=== PATIENT | female | born 1955 | race Caucasian/White ===

== ENCOUNTER → 2016-04-26 | Outpatient (CLI) | payer OTHER ==
--- NOTE | 2016-04-26 16:18 | P.HPBAR ---
Bariatric H&P - History & Physicial H&P Date: 04/26/16 History & Physicial: Visit/CC: Patient initial contact: Initial weight: 98.43 kg Initial weight in pounds: Height: Initial BMI: Last weight: Current weight: Current weight in pounds: Current BMI: [place] body weight (based on NIH guidelines): Excess body weight loss: The patient is a 60 year-old F who presents for Bariatric Assessment. The patient presents today for sleeve gastric follow-up.. Her gastric sleeve was performed in December 2013. She's had minimal complaints of GERD and arthritis. Past Medical History Past Medical History: GERD/Reflux, Hyperlipidemia, Hypertension, Syncope Additional Past Medical History / Comment(s): SUSPECTED STROKE, TESTED NEGATIVE BUT TAKES PLAVIX SINCE 2012 History of Any Multi-Drug Resistant Organisms: None Reported Past Surgical History: Bariatric Surgery, Section, Tubal Ligation Additional Past Surgical History / Comment(s): BILATERAL EYE SURGERY TO CORRECT BLEEDING BEHIND THE EYES, SLEEVE IN DECEMBER 2013 Past Anesthesia/Blood Transfusion Reactions: No Reported Reaction Past Psychological History: No Psychological Hx Reported Smoking Status: Former smoker Past Alcohol Use History: None Reported Past Drug Use History: None Reported - Past Family History Father Family Medical History: Hyperlipidemia, Hypertension Additional Family Medical History / Comment(s): MACULAR DEGENERATION Mother Family Medical History: Hyperlipidemia, Hypertension Additional Family Medical History / Comment(s): MACULAR DEGENERATION Surgical - Exam - General well developed, no distress - Eyes PERRL - ENT normal pinna - Neck no masses - Respiratory normal expansion - Cardiovascular Rhythm: regular - Abdomen Abdomen: soft, non tender - Rectum Rectum: normal sphincter tone Bariatric Assessment & Plan Plan: Status post sleeve gastrectomy. Patient is doing quite well. Her GERD and arthritis symptoms will be observed. She'll follow-up in 3 months. Bariatric Checklist Checklist: Plan: Checklist: EGD: 1. Hiatal hernia: 2. H. Pylori: HgbA1c: Vitamin D: Smoking: Former smoker Primary care physician referral: Psychiatry clearance: Cardiology clearance: Sleep study: Diet journal: VTE risk score: VTE risk level: Rehab needs at discharge:
[2016-04-26 16:33] VITALS: BP 139/85; PULSE 50; RESP 16; TEMP 98.3; BMI 25.7
== END | disposition home or self-care (01) ==
LOC: BARWHC3 14:58
PROVIDERS: ATTEND Surgery
DX: Z48.815 Encounter for surgical aftercare following surgery on the digestive system (principal); K21.9 Gastro-esophageal reflux disease without esophagitis; M19.90 Unspecified osteoarthritis, unspecified site; Z98.84 Bariatric surgery status; Z87.891 Personal history of nicotine dependence
CPT/HCPCS: 99211

== ENCOUNTER → 2016-08-02 | Outpatient (CLI) | payer OTHER ==
[2016-08-05 15:55] LABS: LDL Size 21.1 nm (>20.5); LDL Size 2 21.1 nm (>=20.8); LDL-P (LDL Particle Number) 528 nmol/L (<1000); Small LDL (Particle Number) <90 nmol/L (<=527)
== END | disposition home or self-care (01) ==
LOC: LABWHC1 07:19
PROVIDERS: ATTEND Internal Medicine Cardiovascular Disease
DX: R50.9 Fever, unspecified (principal)
CPT/HCPCS: 36415; 83704

== ENCOUNTER → 2017-12-26 | Outpatient (CLI) | payer OTHER ==
[2017-12-26 15:48] VITALS: BP 143/93; PULSE 65; TEMP 98.7; BMI 27.6
--- NOTE | 2017-12-26 16:15 | P.HPBAR ---
Bariatric H&P - History & Physicial H&P Date: 12/26/17 History & Physicial: Visit/CC: annual f/u Patient initial contact: Initial weight: 98.43 kg Initial weight in pounds: 217.00 Height: 5 ft 1 in Initial BMI: 41.0 Last weight: Current weight: 66.497 kg Current weight in pounds: 146.60 Current BMI: 27.6 [place] body weight (based on NIH guidelines): 47.627 kg Excess body weight loss: 62.8% The patient is a 62 year-old F who presents for Bariatric Assessment. Patient presents today for 1 year follow-up from her gastric sleeve. She has complaints of some minimal GERD. She has had excellent weight loss. Past Medical History Past Medical History: GERD/Reflux, Hyperlipidemia, Hypertension, Syncope Additional Past Medical History / Comment(s): SUSPECTED STROKE, TESTED NEGATIVE BUT TAKES PLAVIX SINCE 2012 History of Any Multi-Drug Resistant Organisms: None Reported Past Surgical History: Bariatric Surgery, Section, Tubal Ligation Additional Past Surgical History / Comment(s): BILATERAL EYE SURGERY TO CORRECT BLEEDING BEHIND THE EYES, SLEEVE IN DECEMBER 2013, vertical Past Anesthesia/Blood Transfusion Reactions: No Reported Reaction Past Psychological History: No Psychological Hx Reported Smoking Status: Former smoker Past Alcohol Use History: None Reported Past Drug Use History: None Reported - Past Family History Father Family Medical History: Hyperlipidemia, Hypertension Additional Family Medical History / Comment(s): MACULAR DEGENERATION Mother Family Medical History: Hyperlipidemia, Hypertension Additional Family Medical History / Comment(s): MACULAR DEGENERATION Surgical - Exam Vital Signs Temp Pulse BP 98.7 F 65 143/93 12/26/17 15:35 12/26/17 15:35 12/26/17 15:35 - General well developed, no distress - Eyes PERRL - ENT normal pinna - Neck no masses - Respiratory normal expansion - Cardiovascular Rhythm: regular - Abdomen Well-formed panniculus. Abdomen: soft, non tender Bariatric Assessment & Plan Plan: Status post sleeve gastrectomy. Patient is an excellent weight loss. She has a well-formed panniculus. Patient was given information on panniculectomy. She 'll follow-up in 6 months. Bariatric Checklist Checklist: Plan: Checklist: EGD: 1. Hiatal hernia: 2. H. Pylori: HgbA1c: Vitamin D: Smoking: Former smoker Primary care physician referral: dr buckley Psychiatry clearance: Cardiology clearance: Sleep study: Diet journal: VTE risk score: VTE risk level: Rehab needs at discharge:
== END | disposition home or self-care (01) ==
LOC: BARWHC3 15:18
PROVIDERS: ATTEND Surgery
DX: Z48.815 Encounter for surgical aftercare following surgery on the digestive system (principal); Z87.891 Personal history of nicotine dependence; Z98.84 Bariatric surgery status; Z79.02 Long term (current) use of antithrombotics/antiplatelets
CPT/HCPCS: 99211

== ENCOUNTER → 2018-01-19 | Outpatient (CLI) | payer OTHER ==
[2018-01-24 05:11] LABS: Large VLDL Particle Number,NMR 1.5 nmol/L (<=2.7)
== END ==
LOC: LABWHC1 07:28
PROVIDERS: ATTEND Internal Medicine Cardiovascular Disease
DX: E78.5 Hyperlipidemia, unspecified (principal)
CPT/HCPCS: 36415; 83704

== ENCOUNTER 2018-03-16 07:43 | Emergency (ER) | payer OTHER ==
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
[2018-03-16] MEDS ORDERED: ACETAMINOPHEN IV (For NPO) 1,000 MG in EMPTY BAG 1 BAG IVPB STA (08:01)
[2018-03-16 08:02] LABS: Glucose,Whole Blood 98 mg/dL (75-99)
[2018-03-16 08:13] LABS: Basophils % (A) 0 %; Eosinophils # (A) 0.2 k/uL (0-0.7); Eosinophils % (A) 3 %; HCT 38.6 % (34.0-46.0); HGB 12.6 gm/dL (11.4-16.0); Lymphocytes # (A) 1.3 k/uL (1.0-4.8); Lymphocytes % (A) 15 %; MCHC 32.6 g/dL (31.0-37.0); Mean Platelet Volume 6.8; Monocytes # (A) 0.4 k/uL (0-1.0); Monocytes % (A) 4 %; Neutrophils # (A) 6.8 k/uL (1.3-7.7); Neutrophils % (A) 77 %; Platelet Count 303 k/uL (150-450); RDW 14.4 % (11.5-15.5); WBC 8.8 k/uL (3.8-10.6)
[2018-03-16 08:31] LABS: Albumin 4.2 g/dL (3.5-5.0); Amylase 58 U/L (30-110); Chloride 111 mmol/L (98-107); Glucose 103 mg/dL (74-99); Potassium 3.8 mmol/L (3.5-5.1); Total Protein 7.1 g/dL (6.3-8.2)
[2018-03-16 08:32] LABS: ALT 41 U/L (9-52); AST 43 U/L (14-36); Alcohol <10 mg/dL; Alkaline Phosphatase 93 U/L (38-126); Anion Gap 10 mmol/L; Blood Urea Nitrogen 15 mg/dL (7-17); Calcium 9.6 mg/dL (8.4-10.2); Carbon Dioxide 22 mmol/L (22-30); Sodium 143 mmol/L (137-145); Total Bilirubin 0.8 mg/dL (0.2-1.3)
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
[2018-03-16 08:35] LABS: INR 0.9 (<1.2); Partial Thromboplastin Time 21.5 sec (22.0-30.0); Prothrombin Time 9.8 sec (9.0-12.0)
[2018-03-16 08:40] LABS: Creatine Kinase 205 U/L (30-135)
[2018-03-16 08:53] LABS: Creatine Kinase MB 5.6 ng/mL (0.0-2.4); Troponin I <0.012 ng/mL (0.000-0.034)
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
--- NOTE | 2018-03-16 10:46 | XR ---
EXAMINATION TYPE: XR femur LT DATE OF EXAM: 03/16/2018 COMPARISON: NONE HISTORY: Pain TECHNIQUE: 4 views submitted FINDINGS: Mild diffuse osteopenia. There is mild concentric narrowing of the hip joint. Mild arthropa thy of the knee joint. No erosive changes. There is a bony density adjacent to the greater trochanter . Best seen on the oblique image. This likely is chronic. IMPRESSION: 1. Bony density along the margin of the greater trochanter seen only on the oblique image. Correlate with point tenderness to exclude acute injury to the greater trochanter. Finding may be chronic. Othe rwise, consider CT scan.
== END 2018-03-16 11:25 | disposition home or self-care (01) ==
LOC: EC 07:43
DX: S00.83XA Contusion of other part of head, initial encounter (principal); S80.12XA Contusion of left lower leg, initial encounter; S80.11XA Contusion of right lower leg, initial encounter; S70.12XA Contusion of left thigh, initial encounter; S46.901A Unspecified injury of unspecified muscle, fascia and tendon at shoulder and upper arm level, right arm, initial encounter; K21.9 Gastro-esophageal reflux disease without esophagitis; E78.5 Hyperlipidemia, unspecified; I10 Essential (primary) hypertension; Z88.0 Allergy status to penicillin; Z79.02 Long term (current) use of antithrombotics/antiplatelets; Z79.899 Other long term (current) drug therapy; Z87.891 Personal history of nicotine dependence; Z98.84 Bariatric surgery status; V89.2XXA Person injured in unspecified motor-vehicle accident, traffic, initial encounter; Y92.410 Unspecified street and highway as the place of occurrence of the external cause
CPT/HCPCS: 36415; 93005; 86900; 86901; 80053; 82150; 82550; 82553; 83605; 84484; 85025; 85610; 85730; 86850; 80320; 72170; 73552; 71045; 72125; 70450; 99285; 96374; J0131

== ENCOUNTER → 2019-09-25 | Outpatient (CLI) | payer BC ==
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
== END | disposition home or self-care (01) ==
LOC: RADXRMAIN 16:18
PROVIDERS: ATTEND Family Medicine
DX: M19.042 Primary osteoarthritis, left hand (principal)

== ENCOUNTER → 2020-01-21 | Outpatient (CLI) | payer BC ==
[2020-01-21 14:18] VITALS: BP 143/68; PULSE 60; TEMP 98.1; BMI 27.0
--- NOTE | 2020-01-21 14:31 | P.HPBAR ---
Bariatric H&P - History & Physicial H&P Date: 01/21/20 History & Physicial: Visit/CC: sleeve follow up Patient initial contact: Initial weight: 98.43 kg Initial weight in pounds: 217.00 Height: 5 ft 1 in Initial BMI: 41.0 Last weight: Current weight: 64.864 kg Current weight in pounds: 143.00 Current BMI: 27.0 [place] body weight (based on NIH guidelines): 47.627 kg Excess body weight loss: 66.0% The patient is a 64 year-old F who presents for Bariatric Assessment. Patient rents today for sleeve gastrectomy follow-up. She is lost in excess of 100 pounds. She has a well-formed panniculus. She's had issues with chronic skin irritation. Past Medical History Past Medical History: GERD/Reflux, Hyperlipidemia, Hypertension, Syncope Additional Past Medical History / Comment(s): SUSPECTED STROKE, TESTED NEGATIVE BUT TAKES PLAVIX SINCE 2012 History of Any Multi-Drug Resistant Organisms: None Reported Past Surgical History: Bariatric Surgery, Section, Tubal Ligation Additional Past Surgical History / Comment(s): BILATERAL EYE SURGERY TO CORRECT BLEEDING BEHIND THE EYES, SLEEVE IN DECEMBER 2013, vertical Past Anesthesia/Blood Transfusion Reactions: No Reported Reaction Past Psychological History: No Psychological Hx Reported Smoking Status: Former smoker Past Alcohol Use History: None Reported Past Drug Use History: None Reported - Past Family History Father Family Medical History: Hyperlipidemia, Hypertension Additional Family Medical History / Comment(s): MACULAR DEGENERATION Mother Family Medical History: Hyperlipidemia, Hypertension Additional Family Medical History / Comment(s): MACULAR DEGENERATION Surgical - Exam Vital Signs Temp Pulse BP 98.1 F 60 143/68 01/21/20 14:10 01/21/20 14:10 01/21/20 14:10 - General well developed, well nourished, no distress - Eyes PERRL - ENT normal pinna - Neck no masses - Respiratory normal expansion - Cardiovascular Rhythm: regular - Abdomen Abdomen: soft, non tender Bariatric Assessment & Plan Plan: Well-formed panniculus. Patient will be scheduled for platelet. Once her insurance authorization criteria met. Bariatric Checklist Checklist: Plan: Checklist: EGD: 1. Hiatal hernia: 2. H. Pylori: HgbA1c: Vitamin D: Smoking: Former smoker Primary care physician referral: dr buckley Psychiatry clearance: Cardiology clearance: Sleep study: Diet journal: VTE risk score: VTE risk level: Rehab needs at discharge:
== END | disposition home or self-care (01) ==
LOC: BARWHC3 13:38
PROVIDERS: ATTEND Surgery
DX: Z48.815 Encounter for surgical aftercare following surgery on the digestive system (principal); Z98.84 Bariatric surgery status
CPT/HCPCS: 99211

== ENCOUNTER → 2020-02-25 | Outpatient (CLI) | payer BC ==
[2020-02-25 13:49] VITALS: BP 158/72; PULSE 76; RESP 18; TEMP 98.1; BMI 27.3
--- NOTE | 2020-02-25 15:39 | P.HPBAR ---
Bariatric H&P - History & Physicial H&P Date: 02/25/20 History & Physicial: Visit/CC: follow up Patient initial contact: Initial weight: 98.43 kg Initial weight in pounds: 217.00 Height: 5 ft 1 in Initial BMI: 41.0 Last weight: Current weight: 65.816 kg Current weight in pounds: 145.10 Current BMI: 27.3 [place] body weight (based on NIH guidelines): 47.627 kg Excess body weight loss: 64.1% The patient is a 64 year-old F who presents for Bariatric Assessment. Patient presents today for bariatric follow-up. Her BMI is 27. She has a well-formed panniculus. She is requesting panniculus. She has read the information booklet. Past Medical History Past Medical History: GERD/Reflux, Hyperlipidemia, Hypertension, Syncope Additional Past Medical History / Comment(s): SUSPECTED STROKE, TESTED NEGATIVE BUT TAKES PLAVIX SINCE 2012 History of Any Multi-Drug Resistant Organisms: None Reported Past Surgical History: Bariatric Surgery, Section, Tubal Ligation Additional Past Surgical History / Comment(s): BILATERAL EYE SURGERY TO CORRECT BLEEDING BEHIND THE EYES, SLEEVE IN DECEMBER 2013, vertical Past Anesthesia/Blood Transfusion Reactions: No Reported Reaction Past Psychological History: No Psychological Hx Reported Smoking Status: Former smoker Past Alcohol Use History: None Reported Past Drug Use History: None Reported - Past Family History Father Family Medical History: Hyperlipidemia, Hypertension Additional Family Medical History / Comment(s): MACULAR DEGENERATION Mother Family Medical History: Hyperlipidemia, Hypertension Additional Family Medical History / Comment(s): MACULAR DEGENERATION Surgical - Exam Vital Signs Temp Pulse Resp BP 98.1 F 76 18 158/72 02/25/20 13:35 02/25/20 13:35 02/25/20 13:35 02/25/20 13:35 - General well developed, well nourished, no distress - Eyes PERRL - ENT normal pinna - Neck no masses - Respiratory normal expansion - Cardiovascular Rhythm: regular - Abdomen Well-formed panniculus Abdomen: soft, non tender Bariatric Assessment & Plan Plan: Because. We'll perform panniculus. Patient will obtain insurance authorization. She's had trouble with chronic skin irritation. Bariatric Checklist Checklist: Plan: Checklist: EGD: 1. Hiatal hernia: 2. H. Pylori: HgbA1c: Vitamin D: Smoking: Former smoker Primary care physician referral: dr buckley Psychiatry clearance: Cardiology clearance: Sleep study: Diet journal: VTE risk score: VTE risk level: Rehab needs at discharge:
== END | disposition home or self-care (01) ==
LOC: BARWHC3 13:07
PROVIDERS: ATTEND Surgery
DX: Z48.815 Encounter for surgical aftercare following surgery on the digestive system (principal); Z98.84 Bariatric surgery status
CPT/HCPCS: 99211

== ENCOUNTER → 2020-08-15 | Day surgery (SDC) | payer BC ==
[2020-08-13 08:34] VITALS: BMI 26.4
[~2020-08-15] MED LIST: IOPAMIDOL CONTRAST (ORAL USE) VIAL PO PRN; LACTATED RINGERS 1,000 ML IV SCH; LIDOCAINE 1% INJ 10MG/ML (20 ML MDV) ONE; PROPOFOL 10 MG/ML 20 ML VIAL IV ONE
[2020-08-15 12:01] VITALS: TEMP 98.8
--- NOTE | 2020-08-15 13:07 | P.GSHP ---
History of Present Illness H&P Date: 08/15/20 Chief Complaint: Right lower quadrant abdominal pain This a 64-year-old female who presents today for colonoscopy. She's had complaints of right lower quadrant abdominal pain. Past Medical History Past Medical History: GERD/Reflux, Hyperlipidemia, Hypertension, Syncope Additional Past Medical History / Comment(s): SUSPECTED STROKE, TESTED NEGATIVE BUT TAKES PLAVIX SINCE 2012, History of Any Multi-Drug Resistant Organisms: None Reported Past Surgical History: Bariatric Surgery, Section, Tubal Ligation Additional Past Surgical History / Comment(s): BILATERAL EYE SURGERY TO CORRECT BLEEDING BEHIND THE EYES, SLEEVE IN DECEMBER 2013, COLONOSCOPY Past Anesthesia/Blood Transfusion Reactions: No Reported Reaction Smoking Status: Former smoker - Past Family History Father Family Medical History: Hyperlipidemia, Hypertension Additional Family Medical History / Comment(s): MACULAR DEGENERATION Mother Family Medical History: Hyperlipidemia, Hypertension Additional Family Medical History / Comment(s): MACULAR DEGENERATION Medications and Allergies Home Medications Medication Instructions Recorded Confirmed Type Atorvastatin [Lipitor] 40 mg PO HS 09/29/15 08/13/20 History Clopidogrel Bisulfate [Plavix] 75 mg PO DAILY 09/29/15 08/13/20 History Pantoprazole Sodium 40 mg PO DAILY 09/29/15 08/13/20 History Sertraline [Zoloft] 100 mg PO DAILY 09/29/15 08/13/20 History Ldg-X-Opsoguv 1 drop PO DAILY 12/26/17 08/13/20 History amLODIPine BESYLATE/BENAZEPRIL 1 cap PO DAILY 08/13/20 08/13/20 History [amLODIPine BESYLATE/BENAZEPRIL 10-40 MG] Allergies Allergy/AdvReac Type Severity Reaction Status Date / Time Penicillins Allergy Rash/Hives Verified 08/15/20 11:50 Surgical - Exam Vital Signs Temp Pulse Resp BP Pulse Ox 98.8 F 76 16 148/78 99 08/15/20 11:59 08/15/20 11:59 08/15/20 11:59 08/15/20 11:59 08/15/20 11:59 - General well developed, well nourished - Eyes PERRL - ENT normal pinna - Neck no masses - Respiratory normal expansion - Cardiovascular Rhythm: regular - Abdomen Abdomen: soft, non tender Assessment and Plan Assessment: Right lower quadrant abdominal pain. We'll perform colonoscopy.
--- NOTE | 2020-08-15 13:21 | P.OP ---
Date of Procedure: 08/15/20 Preoperative Diagnosis: Right lower quadrant pain Postoperative Diagnosis: Incomplete colonoscopy Procedure(s) Performed: Colonoscopy Anesthesia: MAC Surgeon: Master Tejada Pathology: none sent Condition: stable Disposition: PACU Description of Procedure: The patient's placed on the endoscopy table lateral position. Digital rectal exam was performed which revealed no abnormalities. Flexible colonoscope was then placed patient anus. The colonoscope was then advanced into the colon. The colonoscopy then passed beyond the sigmoid colon secondary to tortuosity valve. This point scope was withdrawn. The pediatric scope was then placed. The pediatric scope could not be placed beyond the sigmoid colon secondary to tortuosity valve. This point scope was withdrawn. Patient scheduled for a CAT scan of the abdomen with oral contrast
[2020-08-15 13:25] VITALS: RESP 17
[2020-08-15 13:40] VITALS: BP 134/78; PULSE 62
[2020-08-15 13:59] LABS: African American GFR (CKD) >90 (>60 ml/min/1.73 sqM); Blood Urea Nitrogen 9 mg/dL (7-17); Non-African American GFR(CKD) >90 (>60 ml/min/1.73 sqM)
--- NOTE | 2020-08-15 16:14 | CT ---
EXAMINATION TYPE: CT abdomen pelvis w con DATE OF EXAM: 08/15/2020 HISTORY: incomplete colonoscopy, right lower quadrant pain CT DLP: 446.7mGycm Automated Exposure Control for Dose Reduction was Utilized. CONTRAST: CT scan of the abdomen and pelvis is performed with oral and with IV Contrast, patient injected with 100 mL of Isovue 300. COMPARISON: None. FINDINGS: LUNG BASES: Mild bibasilar linear scarring and/or atelectasis. Calcification at the level of mitral v alve. LIVER/GB: No significant abnormality is appreciated. PANCREAS: No significant abnormality is seen. SPLEEN: No significant abnormality is seen. ADRENALS: No significant abnormality is seen. KIDNEYS: Symmetric cortical medullary uptake and excretion without concerning renal mass or hydroneph rosis seen bilaterally. BOWEL: Surgical changes from Georgie fundoplication surgery at the level of diaphragmatic hiatus with small hiatal hernia. Oral contrast reaches level of hepatic flexure. Evaluation of distal bowel subop timal due to lack of contrast and patient having little intra-abdominal fat. There is wandering cecum into the anterior right mid abdomen. Terminal ileum appears within normal limits image 35. Left and Sigmoid colonic diverticulosis without convincing CT evidence for acute diverticulitis. UTERUS/ADNEXA: Anteverted uterus. Scattered bilateral pelvic phleboliths. LYMPH NODES: No greater than 1cm abdominal or pelvic lymph nodes are appreciated. OSSEOUS STRUCTURES: Multilevel vacuum disc phenomenon throughout the thoracolumbar spine. Moderate di sc space narrowing L2-L3 level with endplate sclerosis. Moderate spurring in the anterior sclerosis a t the T8-T9 level. S-shaped scoliosis. OTHER: No significant additional abnormality is seen. IMPRESSION: No obvious mass or adenopathy. Wandering cecum. Source of right lower quadrant pain not c learly identified.
== END ==
LOC: ORWHC2ENDO 09:49
PROVIDERS: ATTEND Surgery
DX: R10.13 Epigastric pain (principal); K21.9 Gastro-esophageal reflux disease without esophagitis; E78.5 Hyperlipidemia, unspecified; I10 Essential (primary) hypertension; Z98.84 Bariatric surgery status; Z87.891 Personal history of nicotine dependence; Z79.899 Other long term (current) drug therapy; Z88.0 Allergy status to penicillin; F32.9 Major depressive disorder, single episode, unspecified; Z86.73 Personal history of transient ischemic attack (TIA), and cerebral infarction without residual deficits
CPT/HCPCS: 82565; 84520; 74177; 45330; J2001; J2704; Q9967